=== PATIENT | female | born 1990 | race American Indian/Alaskan Native ===

== ENCOUNTER 2020-05-02 21:18 | Emergency (ER) | payer SELFPAY ==
[2020-05-02 22:48] VITALS: BP 139/85
[2020-05-02 23:31] LABS: Alanine Aminotransferase 11 units/L (7-56); Albumin 4.6 g/dL (3.9-5); Blood Urea Nitrogen 12 mg/dL (7-17); Calcium 9.4 mg/dL (8.4-10.2); Hemolysis Index 16
[2020-05-02 23:33] LABS: BUN/Creatinine Ratio 20
[2020-05-02 23:43] LABS: Basophils % (Auto) 0.4 % (0.0-1.8); Eosinophils % (Auto) 0.2 % (0.0-4.3); Hematocrit 39.5 % (30.3-42.9); Hemoglobin 13.2 gm/dl (10.1-14.3); Lymphocytes # (Auto) 2.1 K/mm3 (1.2-5.4); Lymphocytes % (Auto) 26.4 % (13.4-35.0); Mean Corpuscular HGB Conc 33 % (30-34); Mean Corpuscular Volume 84 fl (79-97); Monocytes # (Auto) 0.8 K/mm3 (0.0-0.8); Monocytes % (Auto) 9.8 % (0.0-7.3); Platelet Count 350 K/mm3 (140-440); Red Blood Count 4.72 M/mm3 (3.65-5.03)
[2020-05-03] MEDS ORDERED: SODIUM CHLORIDE 0.9% 1000 ML 1,000 ML IV ONE (01:43)
[2020-05-03] MEDS ORDERED: MORPHINE 4 MG/1 ML INJ IV ONE (01:43)
[2020-05-03] MEDS ORDERED: ONDANSETRON 4 MG/2 ML INJ IV ONE ×2 (01:43→05:17)
[2020-05-03] MEDS ORDERED: FAMOTIDINE 20 MG/2 ML INJ IV ONE (01:43)
[2020-05-03 01:46] LABS: Bacteria,Urine 1+ /HPF (Negative); Bilirubin,Urine SM (Negative); Blood,Urine LG (Negative); Color,Urine Amber (Yellow); Mucus,Urine 3+ /HPF
[2020-05-03 01:48] LABS: Protein,Urine >500 mg/dL (Negative); RBC,Urine > 182.0 /HPF (0.0-6.0)
[2020-05-03 01:50] LABS: Ictotest,Urine Negative (Negative)
--- NOTE | 2020-05-03 04:43 | Cat Scan Report ---
CT ABDOMEN AND PELVIS WITH CONTRAST INDICATION / CLINICAL INFORMATION: Patient complains of abdominal pain with nausea and vomiting. TECHNIQUE: Axial CT images were obtained through the abdomen and pelvis after IV contrast. All CT scans at this location are performed using CT dose reduction for ALARA by means of automated exposure control. COMPARISON: None available. FINDINGS: LOWER CHEST: No significant abnormality. LIVER: No significant abnormality. GALLBLADDER: No significant abnormality. BILE DUCTS: No significant abnormality. PANCREAS: No significant abnormality. SPLEEN: No significant abnormality. ADRENALS: No significant abnormality. RIGHT KIDNEY and URETER: No significant abnormality. LEFT KIDNEY and URETER: No significant abnormality. STOMACH and SMALL BOWEL: No significant abnormality. COLON: No significant abnormality. APPENDIX: A small calculus is present within the appendix PERITONEUM: No free fluid. No free air. No fluid collection. LYMPH NODES: No significant adenopathy. AORTA and ARTERIES: No significant abnormality. IVC and VEINS: No significant abnormality. URINARY BLADDER: No significant abnormality. REPRODUCTIVE ORGANS: No significant abnormality. ADDITIONAL FINDINGS: Nabothian cyst is present SKELETAL SYSTEM: No significant abnormality. IMPRESSION: 1. Appendicolith Signer Name: Miky Wood MD Signed: 05/03/2020 4:38 AM Workstation Name: [id number]
--- NOTE | 2020-05-03 05:12 | Emergency Department Report ---
ED N/V/D HPI - General Chief complaint: Abdominal Pain Stated complaint: VOMITING LIGHT HEADED ABD PAIN Source: patient Mode of arrival: Ambulatory Limitations: No Limitations - History of Present Illness Initial comments: Patient is a 30-year-old -[place] female with no past medical history presents to the ED with complaint of acute onset persistent severe epigastric p ain with intractable nausea and vomiting persistently for the last 5 days. Patient states that she has not hardly been able to eat or drink anything because of persistent nausea and vomiting. Patient states that she suspects he may have eaten some food that was still and . Patient states that no one else at home is had similar symptoms. Patient denies cough, chest pain, shortness of breath, sore throat, diarrhea, dizziness, syncope, dysuria, urinary frequency and urgency, headache, palpitations, hematemesis, hematochezia, vaginal bleeding, vaginal discharge or back pain. MD complaint: nausea, vomiting, abdominal pain (epigastric) -: Sudden, days(s) (5) Description of Vomiting: food contents, watery Associated Abdominal Pain: Yes (epigastric pain) Location: epigastric Radiation: none Severity: severe Pain Scale: 7 Quality: cramping, sharp Consistency: constant Improves with: none Worsens with: eating, vomiting Context: possible food poisoning Associated Symptoms: denies other symptoms, myalgias, loss of appetite, malaise, nausea/vomiting, weakness. denies: chest pain, cough, diaphoresis, fever/chills, headaches, rash, dysuria, shortness of breath, syncope, other - Related Data Previous Rx's Medication Instructions Recorded Last Taken Type Ciprofloxacin HCl [Ciprofloxacin 500 mg PO Q12HR #20 tab 05/03/20 Unknown Rx TAB] Dicyclomine [Bentyl] 20 mg PO Q6H PRN #30 tablet 05/03/20 Unknown Rx Famotidine [Pepcid] 20 mg PO Q12H #60 tablet 05/03/20 Unknown Rx Ondansetron [Zofran Odt] 4 mg PO Q6HR PRN #20 tab.rapdis 05/03/20 Unknown Rx Allergies Allergy/AdvReac Type Severity Reaction Status Date / Time No Known Allergies Allergy Unverified 05/02/20 22:39 ED Review of Systems ROS: Stated complaint: VOMITING LIGHT HEADED ABD PAIN Other details as noted in HPI Constitutional: denies: chills, fever Eyes: denies: eye pain, eye discharge, vision change ENT: denies: ear pain, throat pain Respiratory: denies: cough, shortness of breath, wheezing Cardiovascular: denies: chest pain, palpitations Endocrine: no symptoms reported Gastrointestinal: abdominal pain, nausea, vomiting. denies: diarrhea Genitourinary: denies: urgency, dysuria, discharge Musculoskeletal: denies: back pain, joint swelling, arthralgia Skin: denies: rash, lesions Neurological: denies: headache, weakness, paresthesias Psychiatric: denies: anxiety, depression Hematological/Lymphatic: denies: easy bleeding, easy bruising ED Past Medical Hx - Past Medical History Previous Medical History?: No - Surgical History Past Surgical History?: No - Social History Smoking Status: Never Smoker Substance Use Type: None - Medications Home Medications: Home Medications Medication Instructions Recorded Confirmed Last Taken Type Ciprofloxacin HCl [Ciprofloxacin 500 mg PO Q12HR #20 tab 05/03/20 Unknown Rx TAB] Dicyclomine [Bentyl] 20 mg PO Q6H PRN #30 tablet 05/03/20 Unknown Rx Famotidine [Pepcid] 20 mg PO Q12H #60 tablet 05/03/20 Unknown Rx Ondansetron [Zofran Odt] 4 mg PO Q6HR PRN #20 tab.rapdis 05/03/20 Unknown Rx ED Physical Exam - General Limitations: No Limitations General appearance: alert, in no apparent distress - Head Head exam: Present: atraumatic, normocephalic, normal inspection - Eye Eye exam: Present: normal appearance, PERRL, EOMI Pupils: Present: normal accommodation - ENT ENT exam: Present: normal exam, normal orophraynx, mucous membranes moist, TM's normal bilaterally, normal external ear exam - Neck Neck exam: Present: normal inspection, full ROM - Respiratory Respiratory exam: Present: normal lung sounds bilaterally. Absent: respiratory distress, wheezes, rales, rhonchi, chest wall tenderness, accessory muscle use, decreased breath sounds - Cardiovascular Cardiovascular Exam: Present: regular rate, normal rhythm, normal heart sounds. Absent: systolic murmur, diastolic murmur, rubs, gallop - GI/Abdominal GI/Abdominal exam: Present: soft, tenderness (Palpable epigastric tenderness, no guarding or rebound), normal bowel sounds. Absent: guarding, rebound, hyperactive bowel sounds - Extremities Exam Extremities exam: Present: normal inspection, full ROM, normal capillary refill - Back Exam Back exam: Present: normal inspection, full ROM. Absent: tenderness, CVA tenderness (R), CVA tenderness (L), muscle spasm, paraspinal tenderness - Neurological Exam Neurological exam: Present: alert, oriented X3, CN II-XII intact, normal gait, reflexes normal - Psychiatric Psychiatric exam: Present: normal affect, normal mood - Skin Skin exam: Present: warm, dry, intact, normal color. Absent: rash ED Course Vital Signs 05/02/20 22:40 Temperature 98.5 F Pulse Rate 81 Respiratory 17 Rate Blood Pressure 139/85 O2 Sat by Pulse 100 Oximetry ED Medical Decision Making - Lab Data Result diagrams: 05/02/20 22:52 05/02/20 22:52 - Radiology Data Radiology results: report reviewed, [place] [address] Cat Scan Report Signed Patient: ISAURA DIAZ MR# : [id number] : 1990 Acct:[id number] Age/Sex: 30 / F ADM Date: 05/02/20 Loc: ED Attending Dr: Ordering Physician: JCARLOS CROWLEY Date of Service: 05/03/20 Procedure(s): CT abdomen pelvis w con Accession Number(s): [id number] cc: JCARLOS CROWLEY CT ABDOMEN AND PELVIS WITH CONTRAST INDICATION / CLINICAL INFORMATION: Patient complains of abdominal pain with nausea and vomiting. TECHNIQUE: Axial CT images were obtained through the abdomen and pelvis after IV contrast. All CT scans at this location are performed using CT dose reduction for ALARA by means of a utomated exposure control. COMPARISON: None available. FINDINGS: LOWER CHEST: No significant abnormality. LIVER: No significant abnormality. GALLBLADDER: No significant abnormality. BILE DUCTS: No significant abnormality. PANCREAS: No significant abnormality. SPLEEN: No significant abnormality. ADRENALS: No significant abnormality. RIGHT KIDNEY and URETER: No significant abnormality. LEFT KIDNEY and URETER: No significant abnormality. STOMACH and SMALL BOWEL: No significant abnormality. COLON: No significant abnormality. APPENDIX: A small calculus is present within the appendix PERITONEUM: No free fluid. No free air. No fluid collection. LYMPH NODES: No significant adenopathy. AORTA and ARTERIES: No significant abnormality. IVC and VEINS: No significant abnormality. URINARY BLADDER: No significant abnormality. REPRODUCTIVE ORGANS: No significant abnormality. ADDITIONAL FINDINGS: Nabothian cyst is present SKELETAL SYSTEM: No significant abnormality. IMPRESSION: 1. Appendicolith Signer Name: Miky Wood MD Signed: 05/03/2020 4:38 AM Workstation Name: [id number] Transcribed By: WG Dictated By: Miky Wood MD Electronically Authenticated By: Miky Wood MD Signed Date/Time: 05/03/20437 DD/ 4 TD/TT: - Medical Decision Making This is a 30-year-old -[place] female with no past medical history presents to the ED with complaint of acute onset persistent severe epigastric pain with intractable nausea and vomiting persistently for the last 5 days. Patient states that she has not hardly been able to eat or drink anything because of persistent nausea and vomiting. Patient states that she suspects he may have eaten some food that was still and . Patient states that no one else at home is had similar symptoms. In the ED, patient is alert and oriented x3 and is not in distress. Patient was treated for pain in the ED, also treated for nausea and vomiting and also given antacids, normal saline 1 L IV bolus x1. Lab test results were reviewed and are all nonactionable except for mild hypokalemia of 3.2 mmol/L, mild hyponatremia of 136 mmol/L and mild urinary tract infection in urinalysis. Abdomen pelvis CT scan with contrast shows a s mall calculus, appendicolith, is present within the appendix. These findings were discussed with the ED attending physician Dr. Toscano who advised the patient be discharged home and given a follow-up with the general surgeon on- call Dr. Ballard for further evaluation. Patient was therefore discharged home on medications after the patient passed oral fluid challenge, and patient was given a referral to the general surgeon on-call Dr. Ballard for follow-up. Patient was advised to contact Dr. Ballard's office first thing this morning May 03, 2020 to schedule a follow-up appointment for the finding of appendicolith. Patient was otherwise advised to maintain a clear liquid diet for 12 to 24 hours, take medications and follow-up with her primary care physician in 7 to 10 days for reevaluation. Patient was also advised return to the ED immediately if symptoms get worse. - Differential Diagnosis gastritis,gastroenteritis, appendicitis, , UTI, ovarian cyst, GERD Critical care attestation.: If time is entered above; I have spent that time in minutes in the direct care of this critically ill patient, excluding procedure time. ED Disposition Clinical Impression: Abdominal pain in female patient, Nausea and vomiting in adult patient, Acute urinary tract infection, Appendicolith GERD (gastroesophageal reflux disease) Qualifiers: Esophagitis presence: without esophagitis Qualified Code(s): K21.9 - Gastro- esophageal reflux disease without esophagitis Disposition: TO HOME OR SELFCARE Is pt being admited?: No Does the pt Need Aspirin: No Condition: Stable Instructions: Urinary Tract Infection in Women (ED), Gastroenteritis (ED), Acute Nausea and Vomiting (ED), Abdominal Pain (ED) Additional Instructions: Maintain a clear liquid diet for 12 to 24 hours, take medication as needed, drink plenty of fluids and follow-up with the general surgeon on-call Dr. Ballard for further evaluation of the finding of appendicolith in your appendix. Oth erwise follow-up with your primary care physician in 7 to 10 days for reevaluation. Return to the ED immediately if symptoms get worse. Prescriptions: Dicyclomine [Bentyl] 20 mg PO Q6H PRN #30 tablet PRN Reason: Abdominal pain Ciprofloxacin HCl [Ciprofloxacin TAB] 500 mg PO Q12HR #20 tab Famotidine [Pepcid] 20 mg PO Q12H #60 tablet Ondansetron [Zofran Odt] 4 mg PO Q6HR PRN #20 tab.rapdis PRN Reason: Nausea Referrals: PAMELA BALLARD MD [Staff Physician] - 3-5 Days Forms: Work/School Release Form(ED) Time of Disposition: 05:15 Print Language: SERBIAN
[2020-05-03] MEDS ORDERED: POTASSIUM CHLORIDE ER 20 MEQ TAB PO ONE (05:17)
[2020-05-03] MEDS ORDERED: KETOROLAC 30 MG/1 ML INJ IV ONE (05:18)
== END 2020-05-03 05:47 | disposition home or self-care (01) ==
LOC: ED 21:18
DX: N39.0 Urinary tract infection, site not specified (principal); K21.9 Gastro-esophageal reflux disease without esophagitis; K38.9 Disease of appendix, unspecified; R10.13 Epigastric pain; R11.2 Nausea with vomiting, unspecified; Z79.899 Other long term (current) drug therapy
CPT/HCPCS: 36415; 74177; 80053; 81001; 85025; 87086; 96361; 96374; 96375; 96376; 99284; J1885; J2270; J2405; J7030; Q9967

== ENCOUNTER 2020-11-06 08:39 | Emergency (ER) | payer SELFPAY ==
[2020-11-06 08:46] VITALS: BP 140/115
[2020-11-06] MEDS ORDERED: ONDANSETRON 4 MG/2 ML INJ ONE (09:15)
[2020-11-06 09:22] LABS: Basophils % (Auto) 0.5 % (0.0-1.8); Eosinophils % (Auto) 0.5 % (0.0-4.3); Hematocrit 38.5 % (30.3-42.9); Hemoglobin 13.2 gm/dl (10.1-14.3); Lymphocytes # (Auto) 0.9 K/mm3 (1.2-5.4); Lymphocytes % (Auto) 18.4 % (13.4-35.0); Mean Corpuscular HGB Conc 34 % (30-34); Mean Corpuscular Volume 84 fl (79-97); Monocytes # (Auto) 0.3 K/mm3 (0.0-0.8); Monocytes % (Auto) 6.4 % (0.0-7.3); Platelet Count 293 K/mm3 (140-440); Red Blood Count 4.56 M/mm3 (3.65-5.03); Red Cell Distribution Width 17.8 % (13.2-15.2)
[2020-11-06] MEDS ORDERED: ONDANSETRON 4 MG/2 ML INJ IV ONE ×2 (09:22→11:10)
[2020-11-06 10:06] LABS: Alanine Aminotransferase 16 units/L (7-56); Albumin 4.6 g/dL (3.9-5); Blood Urea Nitrogen 12 mg/dL (7-17); Calcium 9.4 mg/dL (8.4-10.2); Hemolysis Index 0
[2020-11-06 10:13] LABS: BUN/Creatinine Ratio 17
[2020-11-06] MEDS ORDERED: MORPHINE 2 MG/1 ML INJ IV ONE (11:10)
[2020-11-06] MEDS ORDERED: SODIUM CHLORIDE 0.9% 1000 ML 1,000 ML IV ONE (11:10)
--- NOTE | 2020-11-06 11:16 | Emergency Department Report ---
ED Abdominal Pain HPI - General Chief Complaint: Abdominal Pain Stated Complaint: ABD PAIN Time Seen by Provider: 11/06/20 11:10 Source: patient Mode of arrival: Wheelchair Limitations: No Limitations - History of Present Illness Initial Comments: 30-year-old female with no significant past history presents to the ER today with nausea, vomiting, and epigastric abdominal pain. Patient states that her symptoms started 4 days ago has been getting worse. Patient reports multiple episodes of vomiting. She states that emesis is mainly liquid, now has a burgundy red color. She denies any associated diarrhea, melena or hematochezia. She denies any recent ill contacts, recent travel recent bad food intake. She denies any fever or chills. She denies any UTI symptoms or any abnormal vaginal symptoms. She denies EtOH abuse or NSAID abuse. MD Complaint: abdominal pain -: Gradual (4 days ago) - Related Data Previous Rx's Medication Instructions Recorded Last Taken Type Ciprofloxacin HCl [Ciprofloxacin 500 mg PO Q12HR #20 tab 05/03/20 Unknown Rx TAB] Dicyclomine [Bentyl] 20 mg PO Q6H PRN #30 tablet 11/06/20 Unknown Rx Famotidine [Pepcid] 40 mg PO DAILY #30 tablet 11/06/20 Unknown Rx Ondansetron [Zofran ODT TAB] 4 mg PO Q6HR PRN #20 tab.rapdis 11/06/20 Unknown Rx Promethazine [Phenergan] 25 mg HI Q6HR PRN #12 supp.rect 11/06/20 Unknown Rx Allergies Allergy/AdvReac Type Severity Reaction Status Date / Time No Known Allergies Allergy Unverified 05/02/20 22:39 ED Review of Systems ROS: Stated complaint: ABD PAIN Other details as noted in HPI ED Past Medical Hx - Past Medical History Previous Medical History?: No - Surgical History Past Surgical History?: No - Social History Smoking Status: Never Smoker Substance Use Type: None - Medications Home Medications: Home Medications Medication Instructions Recorded Confirmed Last Taken Type Ciprofloxacin HCl [Ciprofloxacin 500 mg PO Q12HR #20 tab 05/03/20 Unknown Rx TAB] Dicyclomine [Bentyl] 20 mg PO Q6H PRN #30 tablet 11/06/20 Unknown Rx Famotidine [Pepcid] 40 mg PO DAILY #30 tablet 11/06/20 Unknown Rx Ondansetron [Zofran ODT TAB] 4 mg PO Q6HR PRN #20 tab.rapdis 11/06/20 Unknown Rx Promethazine [Phenergan] 25 mg HI Q6HR PRN #12 supp.rect 11/06/20 Unknown Rx ED Physical Exam - General Limitations: No Limitations General appearance: alert, in distress, other (Patient appears to be uncomfortable, in pain, she is laying on the floor, and actively vomiting in triage) - Head Head exam: Present: atraumatic, normocephalic, normal inspection - Eye Eye exam: Present: normal appearance, PERRL, EOMI Pupils: Present: normal accommodation - Respiratory Respiratory exam: Present: normal lung sounds bilaterally. Absent: respiratory distress, wheezes - Cardiovascular Cardiovascular Exam: Present: regular rate, normal rhythm, normal heart sounds - GI/Abdominal GI/Abdominal exam: Present: soft, tenderness (Mild epigastric tenderness without guarding or rebound). Absent: distended, guarding, rebound - Back Exam Back exam: Present: normal inspection - Neurological Exam Neurological exam: Present: alert, oriented X3, CN II-XII intact, normal gait - Psychiatric Psychiatric exam: Present: normal affect, normal mood - Skin Skin exam: Present: intact ED Course Vital Signs 11/06/20 11/06/20 11/06/20 08:44 11:22 11:30 Temperature 98.4 F Pulse Rate 86 Respiratory 18 18 18 Rate Blood Pressure 140/115 O2 Sat by Pulse 98 100 Oximetry 11/06/20 11:52 Temperature Pulse Rate Respiratory 18 Rate Blood Pressure O2 Sat by Pulse Oximetry ED Medical Decision Making - Lab Data Result diagrams: 11/06/20 08:53 11/06/20 08:53 - Radiology Data Radiology results: report reviewed Patient: ISAURA DIAZ MR# : [id number] : 1990 Acct:[id number] Age/Sex: 30 / F ADM Date: 11/06/20 Loc: ED Attending Dr: Ordering Physician: JESSI LOPEZ Date of Service: 11/06/20 Procedure(s): XR abd series w cxr 1V Accession Number(s): [id number] cc: JESSI LOPEZ Fluoro Time In Minutes: XR abd series w cxr 1V INDICATION / CLINICAL INFORMATION: Epigastric pain nausea and vomiting. COMPARISON: CT from 11/06/2020. FINDINGS: TUBES / LINES: None. BOWEL GAS PATTERN: No significant abnormality. FREE AIR / EXTRALUMINAL GAS: None seen. ADDITIONAL FINDINGS: No significant additional findings. CHEST: Visualized chest shows no significant abnormality. IMPRESSION: No acute abnormality. Signer Name: Elizabeth Lofton MD Signed: 11/06/2020 12:24 PM Workstation Name: [id number] Transcribed By: VALENTINA Dictated By: ELIZABETH LOFTON MD Electronically Authenticated By: ELIZABETH LOFTON MD Signed Date/Time: 11/06/20 1224 DD/ 1223 TD/TT: - Medical Decision Making 30-year-old female with no significant past history presents to the ER today with nausea, vomiting, and epigastric abdominal pain. Patient states that her symptoms started 4 days ago has been getting worse. Patient reports multiple episodes of vomiting. She states that emesis is mainly liquid, now has a burgundy red color. She denies any associated diarrhea, melena or hematochezia. She denies any recent ill contacts, recent travel recent bad food intake. She denies any fever or chills. She denies any UTI symptoms or any abnormal vaginal symptoms. She denies EtOH abuse or NSAID abuse. Reviewed patient past visit, she presented with similar symptoms back in April 2020 and had a normal work-up including a normal CT abdomen pelvis. 1425: Patient currently sleeping comfortably, she is easily arousable, vomiting have improved after 4 of Zofran and Reglan 10 mg. She was also given morphine 2 mg and IV fluids. Repeat abdominal exam shows soft nontender abdomen. Patient overall is not toxic or ill-appearing. She is neurologically intact. All labs were reviewed and unremarkable. Abdominal series x-ray showed nothing acute. Based on patient current condition, and repeat abdominal exam, and lab results and also the indication for abdominal CT, admission or emergent consult at this time. Discussed lab results and imaging results with patient. She will be given referral to GI and also primary care doctor. Symptoms are concerning for possible gastritis and therefore informed that she should try to stay away from any alcohol, NSAIDs, spicy foods or acidic foods. She will be given a prescription for Pepcid, Zofran and Phenergan suppositories as well as some Bentyl for pain. Patient stable at this time for discharge. Critical care attestation.: If time is entered above; I have spent that time in minutes in the direct care of this critically ill patient, excluding procedure time. ED Disposition Clinical Impression: Nausea and vomiting, Gastritis, Epigastric pain Disposition: TO HOME OR SELFCARE Is pt being admited?: No Does the pt Need Aspirin: No Condition: Stable Instructions: Gastritis, Adult, [id number], Nausea and Vomiting, Adult, [id number], Abdominal Pain (ED) Additional Instructions: Take the Pepcid, Zofran/Phenergan and the pain medication as prescribed. Follow-up with the primary care doctor and or GI specialist especially if your symptoms continues this week or early next week. Return to the ER if your symptoms changes or worsens in any way. Prescriptions: Dicyclomine [Bentyl] 20 mg PO Q6H PRN #30 tablet PRN Reason: Abdominal pain Famotidine [Pepcid] 40 mg PO DAILY #30 tablet Promethazine [Phenergan] 25 mg HI Q6HR PRN #12 supp.rect PRN Reason: Nausea Ondansetron [Zofran ODT TAB] 4 mg PO Q6HR PRN #20 tab.rapdis PRN Reason: Nausea Referrals: [facility] [Provider Group] - 3-5 Days FRANCISCO HILARIO MD [Staff Physician] - 3-5 Days Forms: Work/School Release Form(ED) Time of Disposition: 14:31
--- NOTE | 2020-11-06 12:28 | XRay Report ---
XR abd series w cxr 1V INDICATION / CLINICAL INFORMATION: Epigastric pain nausea and vomiting. COMPARISON: CT from 11/06/2020. FINDINGS: TUBES / LINES: None. BOWEL GAS PATTERN: No significant abnormality. FREE AIR / EXTRALUMINAL GAS: None seen. ADDITIONAL FINDINGS: No significant additional findings. CHEST: Visualized chest shows no significant abnormality. IMPRESSION: No acute abnormality. Signer Name: Barak Lofton MD Signed: 11/06/2020 12:24 PM Workstation Name: [email or web address] Pay[place] [id number]
[2020-11-06] MEDS ORDERED: METOCLOPRAMIDE 10 MG/2 ML INJ IV ONE (13:04)
[2020-11-06 14:01] LABS: Bilirubin,Urine NEG (Negative); Blood,Urine MOD (Negative); Color,Urine Yellow (Yellow); Mucus,Urine FEW /HPF; Urobilinogen,Urine < 2.0 mg/dL (<2.0)
== END 2020-11-06 14:41 | disposition home or self-care (01) ==
LOC: ED 08:39
DX: K29.70 Gastritis, unspecified, without bleeding (principal); R10.13 Epigastric pain; R11.2 Nausea with vomiting, unspecified; Z79.899 Other long term (current) drug therapy
CPT/HCPCS: 36415; 74022; 80053; 81001; 83690; 84703; 85025; 96374; 96375; 96376; 99284; J2270; J2405; J2765; J7030

== ENCOUNTER 2021-02-08 13:28 | Emergency (ER) | payer SELFPAY ==
[2021-02-08 15:41] VITALS: BP 131/100
[2021-02-08 16:13] LABS: Basophils % (Auto) 0.4 % (0.0-1.8); Eosinophils % (Auto) 0.6 % (0.0-4.3); Hematocrit 39.8 % (30.3-42.9); Hemoglobin 13.5 gm/dl (10.1-14.3); Lymphocytes # (Auto) 2.4 K/mm3 (1.2-5.4); Lymphocytes % (Auto) 40.1 % (13.4-35.0); Mean Corpuscular HGB Conc 34 % (30-34); Mean Corpuscular Volume 84 fl (79-97); Monocytes # (Auto) 0.6 K/mm3 (0.0-0.8); Monocytes % (Auto) 9.6 % (0.0-7.3); Platelet Count 360 K/mm3 (140-440); Red Blood Count 4.74 M/mm3 (3.65-5.03); Red Cell Distribution Width 15.4 % (13.2-15.2)
[2021-02-08 16:30] LABS: Alanine Aminotransferase 18 units/L (7-56); Albumin 4.8 g/dL (3.9-5); Blood Urea Nitrogen 13 mg/dL (7-17); Calcium 9.6 mg/dL (8.4-10.2); Hemolysis Index 6
[2021-02-08 16:40] LABS: BUN/Creatinine Ratio 19
[2021-02-08] MEDS ORDERED: ONDANSETRON 4 MG ODT TAB PO ONE (18:21)
--- NOTE | 2021-02-08 18:22 | Event Note ---
ED Screening Note Date of service: 02/08/21 Time: 18:21 ED Screening Note: Patient complains of hematemesis and epigastric pain for 3 days States history of similar episode in October and was seen here in the ED Has not followed up with GI This initial assessment/diagnostic orders/clinical plan/treatment(s) is/are subject to change based on patients health status, clinical progression and re- assessment by fellow clinical providers in the ED. Further treatment and workup at subsequent clinical providers discretion. Patient/guardian urged not to elope from the ED as their condition may be serious if not clinically assessed and managed. Initial orders include: Labs CT abdomen? Zofran
[2021-02-08] MEDS ORDERED: ACETAMINOPHEN 325 MG TAB PO ONE (19:10)
== END 2021-02-08 19:28 | disposition left against medical advice (07) ==
LOC: ED 13:28
DX: R10.9 Unspecified abdominal pain (principal); Z53.21 Procedure and treatment not carried out due to patient leaving prior to being seen by health care provider
CPT/HCPCS: 36415; 80053; 83690; 84703; 85025; Q0162